=== PATIENT | female | born 1955 | race Caucasian/White ===

== ENCOUNTER 2017-12-22 10:48 | Emergency (ER) | payer OTHER ==
[~2017-12-22] VITALS: Ht 162.6 cm; Wt 73.9 kg
[2017-12-22] MEDS ORDERED: SYNTHROID175 MCG PO (10:58)
[2017-12-22] MEDS ORDERED: ZPAK PO (11:24)
[2017-12-22] MEDS ORDERED: VENTOLIN HFA 1818 GM INH (11:24)
[2017-12-22] MEDS ORDERED: PREDNISONE 20 M20 M1 PO (11:24)
[2017-12-22] MEDS ORDERED: DUONEB 2.5-0.5 M3 ML INH (12:17)
[2017-12-22 12:20] VITALS: BP 159/85
== END 2017-12-22 12:23 | disposition home or self-care (01) ==
LOC: M.ERS 10:48
DX: J44.9 Chronic obstructive pulmonary disease, unspecified (principal)

== ENCOUNTER 2019-03-07 06:14 | Inpatient (IN) | payer BC, MEDICARE ==
[~2019-03-07] VITALS: Ht 165.1 cm; Wt 76.2 kg
[~2019-03-07 06:14] MED LIST: DUONEB 2.5-0.5 M3 ML INH; PREDNISONE 20 M20 M1 PO; SYNTHROID175 MCG PO; VENTOLIN HFA 1818 GM INH; ZPAK PO
[2019-03-07 06:17] VITALS: BP 158/106
[2019-03-07] MEDS ORDERED: ZESTRIL20 MG PO (06:21)
[2019-03-07 06:39] LABS: ABSOLUTE BASOPHILS 0.1 thou/uL (0.0-0.2); ABSOLUTE EOSINOPHILS 0.4 thou/uL (0.0-0.7); ABSOLUTE NEUTROPHILS 6.2 thou/uL (1.6-8.1); BASOPHILS 0.6 %; EOSINOPHILS 4.4 %; HEMOGLOBIN 15.1 gm/dL (12.0-15.0); LYMPHOCYTES 20.4 %; MCH 28.6 pg (26.0-34.0); MCHC 32.8 g/dL (28.0-37.0); MCV 87.4 fL (80.0-100.0); MONOCYTES 10.6 %; NUCLEATED RBCS 0 /100WBC; PLATELET COUNT* 200 thou/uL (150-400); RBC 5.26 mil/uL (4.20-5.00); RDW-CV 14.6 % (10.5-14.5); WBC 9.7 thou/uL (4.0-11.0)
[2019-03-07 06:48] LABS: ANION GAP 7 mmol/L (7-16); BUN 21 mg/dL (7-18); CALCIUM 8.7 mg/dL (8.5-10.1); CHLORIDE 103 mmol/L (98-107); CO2 31 mmol/L (21-32); CREATININE 0.8 mg/dL (0.6-1.3); GLUCOSE 104 mg/dL (70-99); POTASSIUM 4.6 mmol/L (3.5-5.1); SODIUM 141 mmol/L (136-145)
[2019-03-07 06:51] LABS: APTT 26.3 Seconds (25.0-31.3); PROTIME 10.2 Seconds (9.20-11.50)
[2019-03-07 06:59] LABS: ALBUMIN 3.4 g/dL (3.4-5.0); ALKALINE PHOSPHATASE 83 U/L (46-116); LIPASE 85 U/L (73-393); MAGNESIUM 1.9 mg/dL (1.8-2.4); NT-PRO BRAIN NAT PEPTIDE 50 pg/mL (<300); SGOT 19 U/L (15-37); SGPT 32 U/L (30-65); TOTAL BILIRUBIN 0.3 mg/dL (<0.1-1.0); TOTAL PROTEIN 6.8 g/dL (6.4-8.2); TROPONIN-I LEVEL <0.06 ng/mL (<0.06)
[2019-03-07 07:11] LABS: BE 2.3 mmol/L (-2 to +3); PCO2 46.7 mmHg (35.0-45.0); PO2 65.4 mmHg (75.0-100.0); pH 7.395 (7.340-7.450)
[2019-03-07 07:14] VITALS: BP 138/89
--- NOTE | 2019-03-07 07:25 | NUR ---
REPORT REC'D FROM ER NURSING. PATIENT REC'D TO RM 109 PER CART FROM ER W/ ER NURSING PRESENT. PATIENT ALERT AND ORIENTED, PRESENT AT TIME OF ADMISSION ASSESSMENT AND REVIEW OF POC DONE. Qs ANSWERED TO PATIENT/ SATISFACTION. IV SL NOTED WNL. +COUGH, NO PROD. LS NOTED FAINT WHEEZES TO. PATIENT STATES UNABLE TO CATCH HER AIR THIS AM, STATES HAD BEEN SOB FOR APPROX 1 WEEK AND CAME TO ER THIS MORNING. DENIES OTHER NURSING NEEDS AT THIS TIME. CALL LIGHT AND RM ORIENTATION COMPLETED, PATIENT STATES VERBALLY OF UNDERSTANDING OF INSTRUCTION. ~TJRN
[2019-03-07 07:41] VITALS: BP 139/89
[2019-03-07] MEDS ORDERED: SYNTHROID125 MC1 PO (08:28)
[2019-03-07] MEDS ORDERED: BEVESPI INH (08:30)
[2019-03-07] MEDS ORDERED: UNICOMPLEX M TA1 TA1 PO (08:31)
[2019-03-07] MEDS ORDERED: CLONAZEPAM 0.50.5 M1 PO (08:32)
--- NOTE | 2019-03-07 10:45 | NUR ---
MET WITH PT TO DISCUSS HOME SITUATION/DC PLANNING. PT LIVES WITH SPOUSE. SHE USES NEBULIZER AND IS INDEPENDENT AND ACTIVE. FOLLOWS WITH [facility] ON [address], CANNOT REMEMBER NAME. DENIES ANY DC NEEDS.
[2019-03-07 17:25] VITALS: BP 147/92
--- NOTE | 2019-03-07 19:00 | NUR ---
PATIENT RESTING THIS AFTERNOON W/ EYES CLOSED, RESPS EVEN AND UNLABORED. AWAKENS EASILY TO VERBAL/TOUCH STIM. STATES THAT SHE DIDN'T SLEEP LAST NOC. +KAIAWHINA KURA [place] MAORI COUGH. IV SITE NOTED WNL. RM DARKENED. CALL LIGHT IN REACH. NO ACUTE DISTRESS NOTED. ~TJRN
[2019-03-07 20:00] VITALS: BP 142/93
[2019-03-08 03:40] LABS: HEMATOCRIT 45.4 % (37.0-47.0); HEMOGLOBIN 14.7 gm/dL (12.0-15.0); MCH 28.4 pg (26.0-34.0); MCHC 32.4 g/dL (28.0-37.0); MCV 87.7 fL (80.0-100.0); MPV 9.4 fl. (7.2-11.1); RBC 5.18 mil/uL (4.20-5.00); RDW-CV 14.9 % (10.5-14.5); WBC 10.1 thou/uL (4.0-11.0)
[2019-03-08 04:12] LABS: CALCIUM 8.9 mg/dL (8.5-10.1); CREATININE 0.8 mg/dL (0.6-1.3); MAGNESIUM 1.9 mg/dL (1.8-2.4); POTASSIUM 4.3 mmol/L (3.5-5.1)
--- NOTE | 2019-03-08 04:28 | NUR ---
PATIENT HAS REMAINED ALERT AND ORIENTED X 4 THROUGHOUT THE SHIFT AND RESTING QUIETLY ON HOURLY ROUNDS. DENIES SOA ON ROOM AIR. MEDS PER ORDER AND RT TX CONTINUE. VITAL SIGNS STABE. UP IN ROOM INDEPENDENTLY. CONTINUE TO MONITOR.
[2019-03-08 16:27] VITALS: BP 151/76
--- NOTE | 2019-03-08 18:53 | NUR ---
PATIENT PLEASANT AND COOPERATIVE THIS SHIFT, CONVERSANT. LS NOTED DIM TO. 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 PATIENT DENIES PAIN. PRESENT AT TIMES THIS SHIFT. IV CATH SITE NOTED WNL. INDEP IN RM. O2 93-95% RA. DENIES NURSING NEEDS AT THIS TIME. CALL LIGHT IN REACH. HRLY ROUNDS DONE.
[2019-03-08 19:47] VITALS: BP 143/87
--- NOTE | 2019-03-09 04:31 | NUR ---
PATIENT ALERT AND ORIENTED X 4 THIS SHIFT. DUE TO RT TX AND STEROIDS LAST BEDTIME DESPITE ADDITION OF MELATONIN. NO ACUTE RESPIRATORY DISTRESS. NOTED SOME SOA AFTER SHOWER AT SHIFT START. VITAL SIGNS STABLE. PATIENT REPORTING CONTINUED OVERALL IMPROVEMENT. CONTINUE TO MONITOR.
[2019-03-09 07:12] VITALS: BP 161/89
[2019-03-09] MEDS ORDERED: IPRAT-ALBUT 0.5-3 ML INH (09:04)
[2019-03-09 10:38] VITALS: BP 161/89
[2019-03-09] MEDS ORDERED: PROTONIX40 M1 PO (10:44)
[2019-03-09] MEDS ORDERED: CEFDINIR300 MG PO (10:44)
[2019-03-09] MEDS ORDERED: PREDNISONE 10 M10 MG PO (10:44)
--- NOTE | 2019-03-09 11:46 | NUR ---
PT.DISCHARGING TODAY. CM GAVE RN LIST OF OWNED BY [facility] TO GIVE TO PT., SHE IS LOOKING FOR A NEW PCP. NO OTHER NEEDS IDENTIFIED.
[2019-03-09 12:22] VITALS: BP 161/89
[2019-03-09] MEDS ORDERED: SINGULAIR 10 MG10 M1 PO (12:24)
--- NOTE | 2019-03-09 13:05 | EKG ---
[place] [address] ELECTROCARDIOGRAM REPORT Name: SULEMA PARRA Room: [address] IN M.R.#: [id number] Admission: 03/07/19 Attend Phys: Johny Estrada MD Discharge: 03/09/19 Date of : 51 Report #: [id number] THIS REPORT FOR: //name// [facility] ED Test Date: 2019-03-07 Test Time: 06:25:37 Pat Name: SULEMA PARRA Department: Room: [facility] Gender: F Supervisor Pairing And Inspecting: SD : 1955 Requested By: Joon Martini Order Number: [id number] MD: Julian Leone Measurements Intervals [place] Rate: 87 P: 82 [place]: 153 QRS: 61 QRSD: 102 T: 80 QT: 353 QTc: 425 Interpretive Statements Sinus rhythm Ventricular premature complex Probable left atrial enlargement No previous ECG available for comparison Electronically Signed On 03-09-2019 13:05:04 CDT by Julian Leone [email or web address] <ELECTRONICALLY SIGNED> By: Julian Leone MD, [facility] 03/09/19 1305 4 4 Julian Leone MD, FACC /EPI
== END 2019-03-09 12:22 | disposition home or self-care (01) | DRG 189 ==
LOC: M.ERS 06:14 → M.TBA-ER 06:46 → M.ORTHSURG 06:46
PROVIDERS: Family Medicine; ADMIT Internal Medicine
DX: J96.01 Acute respiratory failure with hypoxia (principal); J44.1 Chronic obstructive pulmonary disease with (acute) exacerbation; I10 Essential (primary) hypertension; E03.9 Hypothyroidism, unspecified; B96.89 Other specified bacterial agents as the cause of diseases classified elsewhere; F41.1 Generalized anxiety disorder; F32.9 Major depressive disorder, single episode, unspecified; J96.12 Chronic respiratory failure with hypercapnia; J40 Bronchitis, not specified as acute or chronic; Z87.891 Personal history of nicotine dependence; Z79.899 Other long term (current) drug therapy; Z85.850 Personal history of malignant neoplasm of thyroid

== ENCOUNTER 2019-04-11 15:42 | Emergency (ER) | payer BC, MEDICARE ==
[~2019-04-11] VITALS: Ht 165.1 cm; Wt 74.4 kg
[~2019-04-11 15:42] MED LIST changes: +BEVESPI INH; +CEFDINIR300 MG PO; +CLONAZEPAM 0.50.5 M1 PO; +IPRAT-ALBUT 0.5-3 ML INH; +PREDNISONE 10 M10 MG PO; +PROTONIX40 M1 PO; +SINGULAIR 10 MG10 M1 PO; +SYNTHROID125 MC1 PO; +UNICOMPLEX M TA1 TA1 PO; +ZESTRIL20 MG PO
[2019-04-11] MEDS ORDERED: BUSPIRONE HCL10 MG PO (15:58)
[2019-04-11 16:27] LABS: ABSOLUTE BASOPHILS 0.1 thou/uL (0.0-0.2); ABSOLUTE EOSINOPHILS 0.3 thou/uL (0.0-0.7); ABSOLUTE LYMPHOCYTES 2.3 thou/uL (0.8-5.3); ABSOLUTE MONOCYTES 0.8 thou/uL (0.0-1.2); ABSOLUTE NEUTROPHILS 3.5 thou/uL (1.6-8.1); BASOPHILS 0.9 %; EOSINOPHILS 4.3 %; HEMATOCRIT 45.4 % (37.0-47.0); HEMOGLOBIN 15.3 gm/dL (12.0-15.0); LYMPHOCYTES 32.7 %; MCH 28.9 pg (26.0-34.0); MCHC 33.6 g/dL (28.0-37.0); MCV 86.1 fL (80.0-100.0); MPV 9.3 fl. (7.2-11.1); NUCLEATED RBCS 0 /100WBC; PLATELET COUNT* 261 thou/uL (150-400); POLYS 50.1 %; RBC 5.27 mil/uL (4.20-5.00); RDW-CV 14.9 % (10.5-14.5); WBC 6.9 thou/uL (4.0-11.0)
[2019-04-11 16:31] LABS: ANION GAP 9 mmol/L (7-16); BUN 18 mg/dL (7-18); CALCIUM 8.7 mg/dL (8.5-10.1); CHLORIDE 106 mmol/L (98-107); CO2 28 mmol/L (21-32); GLUCOSE 90 mg/dL (70-99); POTASSIUM 4.2 mmol/L (3.5-5.1); SODIUM 143 mmol/L (136-145)
[2019-04-11 16:40] LABS: ALBUMIN 3.5 g/dL (3.4-5.0); ALKALINE PHOSPHATASE 87 U/L (46-116); SGOT 19 U/L (15-37); SGPT 30 U/L (30-65); TOTAL BILIRUBIN 0.3 mg/dL (<0.1-1.0); TROPONIN-I LEVEL <0.06 ng/mL (<0.06)
[2019-04-11] MEDS ORDERED: PREDNISONE 20 M20 MG PO (17:24)
[2019-04-11 17:33] VITALS: BP 152/83
--- NOTE | 2019-04-12 12:21 | EKG ---
[place] [address] ELECTROCARDIOGRAM REPORT Name: SULEMA PARRA Room: [facility]#: [id number] Admission: 04/11/19 Attend Phys: Discharge: 04/11/19 Date of : 51 Report #: [id number] THIS REPORT FOR: //name// [facility] ED Test Date: 2019-04-11 Test Time: 16:23:46 Pat Name: SULEMA PARRA Department: Room: Gender: F Camera Control Operator: MYRIAM : 1955 Requested By: Chas Sanders Order Number: [id number] MD: Julian Leone Measurements Intervals [place] Rate: 77 P: 75 NC: 165 QRS: 50 QRSD: 111 T: 65 QT: 397 QTc: 450 Interpretive Statements Sinus rhythm Minimal ST elevation, anterior leads Compared to ECG 03/07/2019 06:25:37 Ventricular premature complex(es) no longer present Electronically Signed On 04-12-2019 12:21:15 CDT by Julian Leone [email or web address] <ELECTRONICALLY SIGNED> By: Julian Leone MD, [facility] 04/12/19 1221 1623 162 Julian Leone MD, [facility] /EPI
== END 2019-04-11 17:34 | disposition home or self-care (01) ==
LOC: M.ERS 15:42
PROVIDERS: Physician Assistant
DX: J44.1 Chronic obstructive pulmonary disease with (acute) exacerbation (principal); I10 Essential (primary) hypertension; E03.9 Hypothyroidism, unspecified; Z90.89 Acquired absence of other organs

== ENCOUNTER → 2019-04-13 | Outpatient (CLI) | payer BC, MEDICARE ==
[~2019-04-13] MED LIST changes: +BUSPIRONE HCL10 MG PO; +PREDNISONE 20 M20 MG PO
== END ==
LOC: M.LAB 12:01
DX: R06.02 Shortness of breath (principal)

== ENCOUNTER 2020-02-18 12:21 | Observation (INO) | payer BC, MEDICARE ==
[~2020-02-18] VITALS: Ht 162.6 cm; Wt 74.8 kg
--- NOTE | ~2020-02-18 | CON ---
[address] [address] CONSULTATION Name: SHEBASULEMA TOLEDO ADRIANA Room: [address] Diann He#: [id number] Admission: 02/18/20 Attend Phys: Heidi Hare Discharge: Date of : 51 Report #: [id number] THIS REPORT FOR: //name// cc: Dejuan Yoo Vincent R. DO THIS REPORT FOR: //name// CC: Yousif Yoo DO DATE OF SERVICE: 02/19/2020 CARDIOLOGY CONSULTATION HISTORY OF PRESENT ILLNESS: The patient is a 64-year-old white female who I was asked to see in the hospital today after she complained of being fatigued. The patient has a long history of hypertension. I have actually seen her in the Cardiology Clinic in the past. She has had a previous stress test at [facility] that showed no significant ischemia. Recently, she complained of fatigue and having no energy. Her blood pressure has been elevated. She went to see her doctor yesterday. She was noted to have an abnormal ECG. She was sent to the hospital and admitted for further evaluation and treatment. She does have occasional chest tightness, although it is nonexertional. There is no radiation. It is not related to food. She has had no fever or cough. She does get short of breath if she exerts herself. She does have occasional edema. She notes occasional episodes where heart rate will increase and she feels dizzy, but she has had no syncope. PAST MEDICAL HISTORY: She has had previous breast lift. She has had appendectomy and cholecystectomy. She has a history of thyroid cancer and had a partial thyroidectomy, but required no radiation therapy. She has a history of hypertension. No history of diabetes or hyperlipidemia. CURRENT MEDICATIONS: Include albuterol inhaler, Synthroid, and lisinopril. ALLERGIES: She has no known drug allergies. FAMILY HISTORY: Her grandfather had a stroke. SOCIAL HISTORY: She is . She and her live in [place], [place]. She used to smoke a pack and a half of cigarettes a day for 20 years and quit 10 years ago, rarely drinks alcohol. She does exercise on a regular basis. REVIEW OF SYSTEMS: She has had no history of stroke. She does have a history of COPD and uses inhaler. No history of liver disease, kidney disease, [place] [address] CONSULTATION Name: SULEMA PARRA ADRIANA Room: [address] Ying#: [id number] Admission: 02/18/20 Attend Phys: Heidi Hare Discharge: Date of : 51 Report #: [id number] chronic skin condition. PHYSICAL EXAMINATION: GENERAL: Revealed a middle-aged female, who appeared in no distress. VITAL SIGNS: Blood pressure 160/80 and pulse 70. She is afebrile. HEENT: She was anicteric. Conjunctivae pink. Mucous membranes are moist. NECK: Veins do not appear distended. No carotid bruits. Neck supple. CHEST: Clear to auscultation. CARDIOVASCULAR: Regular rate and rhythm, no murmur. ABDOMEN: Soft. EXTREMITIES: Had no edema. Dorsalis pedis pulses 3+ bilaterally. SKIN: Cool and dry. NEUROLOGIC: Nonfocal. RADIOLOGIC DATA: Her ECG showed a sinus rhythm, nonspecific ST-segment changes. Her workup in the Emergency Room yesterday, she had a portable chest x-ray that showed hyperinflated lung meredith, normal heart size, and atelectasis. LABORATORY WORK: Sodium 137 and creatinine 1.1. Liver function studies were normal. Troponin 0.06. BNP was 50. Her white blood cell count was 9.9 and hemoglobin 16.9. IMPRESSION AND RECOMMENDATIONS: 1. Fatigue. Reason unclear. The patient is not anemic. Does not appear to be dehydrated. 2. The patient is on thyroid replacement. 3. Hypertension. The patient has been on VIJAYA inhibitor. I would increase the dose. 4. Chronic obstructive pulmonary disease. The patient uses an inhaler. 5. Chest pressure. Suspect noncardiac. Previous Cardiolite showed no ischemia. By: 0820 0837Julian Leone MD, FACC /nt
[2020-02-18 12:29] VITALS: BP 189/100
[2020-02-18 12:58] LABS: ABSOLUTE BASOPHILS 0.1 thou/uL (0.0-0.2); ABSOLUTE EOSINOPHILS 0.1 thou/uL (0.0-0.7); ABSOLUTE LYMPHOCYTES 2.3 thou/uL (0.8-5.3); ABSOLUTE MONOCYTES 0.9 thou/uL (0.0-1.2); ABSOLUTE NEUTROPHILS 6.5 thou/uL (1.6-8.1); BASOPHILS 0.7 %; EOSINOPHILS 1.1 %; HEMATOCRIT 49.4 % (37.0-47.0); HEMOGLOBIN 16.9 gm/dL (12.0-15.0); LYMPHOCYTES 23.1 %; MCH 29.8 pg (26.0-34.0); MCHC 34.2 g/dL (28.0-37.0); MCV 87.3 fL (80.0-100.0); MONOCYTES 9.5 %; MPV 9.9 fl. (7.2-11.1); NUCLEATED RBCS 0 /100WBC; PLATELET COUNT* 247 thou/uL (150-400); POLYS 65.6 %; RBC 5.66 mil/uL (4.20-5.00); RDW-CV 15.4 % (10.5-14.5); WBC 9.9 thou/uL (4.0-11.0)
[2020-02-18 13:03] LABS: CALCIUM 9.3 mg/dL (8.5-10.1); CREATININE 1.1 mg/dL (0.6-1.3); POTASSIUM 4.4 mmol/L (3.5-5.1)
[2020-02-18 13:04] LABS: INR 1.1; PROTIME 11.1 Seconds (9.20-11.50)
[2020-02-18 13:18] LABS: ALBUMIN 3.8 g/dL (3.4-5.0); TOTAL BILIRUBIN 0.5 mg/dL (<0.1-1.0); TOTAL PROTEIN 7.7 g/dL (6.4-8.2)
[2020-02-18 14:04] LABS: URINE BILIRUBIN NEGATIVE (Negative); URINE BLOOD NEGATIVE (Negative); URINE CLARITY CLEAR; URINE COLOR YELLOW; URINE GLUCOSE-RANDOM NEGATIVE (Negative); URINE KETONES NEGATIVE (Negative); URINE LEUKOCYTES-REFLEX 1+ (Negative); URINE NITRITE-REFLEX NEGATIVE (Negative); URINE PROTEIN NEGATIVE (Negative); URINE SPECIFIC GRAVITY <= 1.005 (1.005-1.030); URINE UROBILINOGEN 0.2 E.U./dl (0.2-1.0)
[2020-02-18 14:09] LABS: SQUAMOUS 0-3 Few /LPF (0-3)
[2020-02-18 14:10] LABS: URINE WBC-REFLEX 0-5 Rare /HPF (0-5)
[2020-02-18 14:11] LABS: CASTS None Seen /LPF (None Seen); CRYSTALS None Seen /LPF (None Seen); MUCUS None Seen strn/LPF (None Seen); URINE RBC None Seen /HPF (0-2)
--- NOTE | 2020-02-18 14:51 | EKG ---
[place] [address] ELECTROCARDIOGRAM REPORT Name: SHEBAPARISSULEMA Room: [facility]#: [id number] Admission: 02/18/20 Attend Phys: Discharge: Date of : 51 Date of Service: 02/18/20 1233 Report #: [id number] THIS REPORT FOR: //name// [facility] ED Test Date: 2020-02-18 Test Time: 12:33:55 Pat Name: SULEMA PARRA Department: Room: Gender: F Vet Assistant: : 1955 Requested By: Carrol Cuevas Order Number: [id number] MD: Julian Leone Measurements Intervals [place] Rate: 73 P: 72 TN: 159 QRS: 33 QRSD: 93 T: 89 QT: 390 QTc: 430 Interpretive Statements Sinus rhythm Probable left atrial enlargement Abnormal inferior Q waves Compared to ECG 04/11/2019 16:23:46 no change Electronically Signed On 02-18-2020 14:51:35 CDT by Julian Leone [email or web address] <ELECTRONICALLY SIGNED> By: Julian Leone MD, [facility] 02/18/20 1451 1233 1233 Julian Leone MD, [facility] /EPI
[2020-02-18 18:52] VITALS: BP 157/94; BP 158/78
--- NOTE | 2020-02-18 19:22 | NUR ---
PT ARRIVED ON TELE FLOOR AT 1850 ACCOMPLANIED BY ER NURSE. UP AD HELDER. VSS . SEE CHART
[2020-02-18 20:11] VITALS: BP 148/88
[2020-02-19] VITALS: BP 144/83
[2020-02-19 04:00] VITALS: BP 156/80
--- NOTE | 2020-02-19 06:39 | NUR ---
PT IS ABLE TO COMMUNICATE HER NEEDS TO STAFF EFFECTIVELY. SHE HAS DENIED THE NEED FOR PAIN MEDICATION UP TO THIS TIME. PT WAS ADMITTED TO ROOM 230 DURING RESTORATION SILVERSMITH; VSS, A+OX4, 2LO2 NC, DENIES PAIN, UP AD HELDER. SHE HAS BEEN NPO SINCE MIDNIGHT FOR A CARDIOLOGY CONSULT LATER TODAY.
[2020-02-19 08:00] VITALS: BP 116/81
[2020-02-19] MEDS ORDERED: NORVASC5 MG PO (08:37)
[2020-02-19] MEDS ORDERED: ROBAXIN 750 MG750 MG PO (08:38)
--- NOTE | 2020-02-19 08:39 | NUR ---
ASSUMED PT CARE AT 07:15 AM. REPORT RECEIVED FROM NURSE. PT IS AOX4. ON RA, O2 SATURATION IS 96%. PATIENT DENIES PAIN. TRACING SR ON SERVICE CENTER MANAGER. DENIES PAIN. BUT COMPLAINS OF MUSCLE CRAMP ON THE LEFT SIDE OF HER CHEST. CARDIO CONSULT DONE AT BEDSIDE. PLAN TO DO STRESS TEST AND ECHO TODAY. THEN PATIENT COULD BE DISCHARGED PER CERTIFIED MASSAGE THERAPIST. VSS. SEE CHART. PT IS KEPT NPO FOR STRESS TEST. BP MEDS TO BE GIVEN THIS AM PER CERTIFIED MASSAGE THERAPIST ORDER. FALL PRECAUTION IN PLACE. WILL CONTINUE TO MONITOR PT.
--- NOTE | 2020-02-19 09:36 | EKG ---
[place] [address] ELECTROCARDIOGRAM REPORT Name: SULEMA PARRA Room: [address] M.R.#: [id number] Admission: 02/18/20 Attend Phys: Yousif Pace Discharge: Date of : 51 Date of Service: 02/18/20 1450 Report #: [id number] THIS REPORT FOR: //name// [facility] ED Test Date: 2020-02-18 Test Time: 14:50:41 Pat Name: SULEMA PARRA Department: Room: [facility] Gender: F Manager Cosmetic: CCD : 1955 Requested By: Carrol Cuevas Order Number: [id number] MD: Julian Leone Measurements Intervals [place] Rate: 74 P: 58 ME: 161 QRS: 24 QRSD: 92 T: 90 QT: 391 QTc: 434 Interpretive Statements Sinus rhythm Ventricular bigeminy Probable left atrial enlargement Inferior infarct, old Minimal ST elevation, anterior leads Compared to ECG 02/18/2020 12:33:55 Ventricular premature complex(es) now present Myocardial infarct finding now present Electronically Signed On 02-19-2020 9:36:46 CDT by Julian Leone [email or web address] <ELECTRONICALLY SIGNED> By: Julian Leone MD, FAC 02/19/20 0936 1450 1450 Julian Leone MD, [facility] /EPI
[2020-02-19 11:33] VITALS: BP 116/81
[2020-02-19 12:05] VITALS: BP 137/84
--- NOTE | 2020-02-19 14:58 | EXE ---
[place] [address] STRESS ECHOCARDIOGRAM Name: SULEMA PARRA ADRIANA Room: [address] Diann He#: [id number] Admission: 02/18/20 Attend Phys: Yousif Pace Discharge: Date of : 51 Date of Service: 02/19/20 1458 Report #: [id number] THIS REPORT FOR: cc: Dejuan Yoo Vincent R. DO Blick,Julian Stark MD [facility] ~ APPROVED REPORT Study performed: 02/19/2020 10:26:26 Exam: Stress Echocardiogram Indication: Hypertension Patient Location: In-Patient Stress Nurse: Mari Villeda RN Room #: 230 Supervising Physician: Julian Leone MD Status: routine Ht: 5 ft 4 in HR: 69 bpm BP: 127/81 mmHg Rhythm: NSR Medical History Medical History: COPD, HTN Medications: Amlodipine, Lisinopril Allergies: No known drug allergies Cardiac Risk Factors: HTN, Tobacco History (Former), FHX of CAD Procedure The patient underwent an Exercise Stress Test using the Chance Protocol. Blood pressure, heart rate, and EKG were monitored. An Echocardiogram was performed by isotope technician in four stages in quad fashion. At peak stress, four selected images were obtained and placed side by side with resting images for comparison. Stress Test Details Stress Test: Exercise stress testing was performed using a Chance protocol. HR Resting HR: 69 bpm Max Heart Rate (APMHR): 154 bpm Max HR Achieved: 135 bpm Target HR (85% APMHR): 130 bpm % of APMHR: 87 Recovery HR: 99 [place] [address] STRESS ECHOCARDIOGRAM Name: SHEBACLAUDIO TOLEDOEFE WRIGHT Room: [address]#: [id number] Admission: 02/18/20 Attend Phys: Yousif Pace Discharge: Date of : 51 Date of Service: 02/19/20 1458 Report #: [id number] HR response to stress: Normal HR response to stress BP Resting BP: 127/81 mmHg Max BP: 181/92 mmHg Recovery BP: 134/74 mmHg BP response to stress: Normal blood pressure response to stress. ECG Resting ECG: Sinus Rhythm, nonspecific ST-T abnormalities Stress ECG: Sinus Rhythm, nonspecific ST-T abnormalities ST Change: Upsloping ST depression Maximum ST Deviation: 0.5 mm Arrhythmia: VPC's Recovery ECG: Sinus Rhythm, nonspecific ST-T abnormalities Recovery ST Change: Upsloping ST depression Recovery ST Deviation: 0.5 mm Recovery Arrhythmia: VPC Clinical Reason for Termination: Maximal effort, Dyspnea Stress Symptoms: Dyspnea Exercise duration: 5 min 59 sec Highest Stage Achieved: Stage 2: 2.5 mph at 12% grade. Exercise capacity: 7.05 METs Pre-Stress Echo The resting Echocardiogram showed normal left ventricular contractility with an estimated Ejection Fraction of about 55-60%. Post-Stress Echo The stress Echocardiogram showed normal left ventricular contractility with an estimated Ejection Fraction of about 65-70%. Compared to rest, there were no stress-induced wall motion abnormalities. Conclusion Clinical Response: Non-ischemic Exercise Capacity: Below Average Stress ECG Response: Indeterminant Stress Echo Images: Non-ischemic indeterminate stress echo for predicting future cardiac events secondary to inability to achieve [place] [address] STRESS ECHOCARDIOGRAM Name: CLAUDIO PARRAEFE WRIGHT Room: [address] Ying#: [id number] Admission: 02/18/20 Attend Phys: Yousif Pace Discharge: Date of : 51 Date of Service: 02/19/20 1458 Report #: [id number] Other Information Study Quality: Good <Conclusion> indeterminate stress echo for predicting future cardiac events secondary to inability to achieve target heart rate. <ELECTRONICALLY SIGNED> By: Julian Leone MD, [facility] 02/19/20 1458 1458 1458 Julian Leone MD, FACC /INF
--- NOTE | 2020-02-19 15:56 | NUR ---
STRESS TEST RESULT CAME BACK. SEE CHART. DISCHARGE INSTRUCTIONS GIVEN TO PATIENT. IV LINE REMOVED. HEART MONITOR RETRIEVED. PT LEFT UNIT AT 1545 ACCOMPANIED BY THIS NURSE ON WHEELCHAIR. HER PICKED HER UP
== END 2020-02-19 15:45 | disposition home or self-care (01) ==
LOC: M.ERS 12:21 → M.2W 15:28 → M.TBA-ER 15:28 → M.2W 18:44
PROVIDERS: Personal Emergency Response Attendant; ADMIT Internal Medicine; ATTEND Internal Medicine
DX: R07.89 Other chest pain (principal); I16.0 Hypertensive urgency; I16.1 Hypertensive emergency; R53.83 Other fatigue; R19.7 Diarrhea, unspecified; J44.9 Chronic obstructive pulmonary disease, unspecified; I10 Essential (primary) hypertension; E03.9 Hypothyroidism, unspecified; F41.9 Anxiety disorder, unspecified; F32.9 Major depressive disorder, single episode, unspecified; Z87.891 Personal history of nicotine dependence; M62.838 Other muscle spasm

== ENCOUNTER 2020-03-11 18:07 | Emergency (ER) | payer BC, MEDICARE ==
[~2020-03-11] VITALS: Ht 162.6 cm; Wt 77.1 kg
[~2020-03-11 18:07] MED LIST changes: +NORVASC5 MG PO; +ROBAXIN 750 MG750 MG PO
[2020-03-11] MEDS ORDERED: ONDANSETRON HCL4 M2 PO (18:51)
[2020-03-11] MEDS ORDERED: ZPAK PO (18:51)
[2020-03-11] MEDS ORDERED: VENTOLIN HFA 1818 GM INH (18:51)
[2020-03-11 19:22] VITALS: BP 135/70
== END 2020-03-11 19:23 | disposition home or self-care (01) ==
LOC: M.ERS 18:07
DX: U07.1 COVID-19 (principal); I10 Essential (primary) hypertension; E03.9 Hypothyroidism, unspecified; J45.909 Unspecified asthma, uncomplicated; J44.9 Chronic obstructive pulmonary disease, unspecified; Z90.49 Acquired absence of other specified parts of digestive tract; Z85.850 Personal history of malignant neoplasm of thyroid

== ENCOUNTER 2020-03-13 22:37 | Inpatient (IN) | payer BC, MEDICARE ==
[~2020-03-13] VITALS: Ht 162.6 cm; Wt 82.6 kg
[~2020-03-13 22:37] MED LIST changes: +ONDANSETRON HCL4 M2 PO
[2020-03-13 22:45] VITALS: BP 147/81
[2020-03-13 23:26] LABS: ABSOLUTE MONOCYTES 0.5 thou/uL (0.0-1.2); ABSOLUTE NEUTROPHILS 3.6 thou/uL (1.6-8.1); BASOPHILS 0.3 %; EOSINOPHILS 0.2 %; HEMATOCRIT 41.6 % (37.0-47.0); HEMOGLOBIN 14.1 gm/dL (12.0-15.0); LYMPHOCYTES 19.3 %; MCH 29.4 pg (26.0-34.0); MCHC 33.9 g/dL (28.0-37.0); MCV 86.8 fL (80.0-100.0); MONOCYTES 9.1 %; MPV 9.9 fl. (7.2-11.1); NUCLEATED RBCS 0 /100WBC; PLATELET COUNT* 128 thou/uL (150-400); POLYS 71.1 %; RBC 4.79 mil/uL (4.20-5.00); RDW-CV 15.1 % (10.5-14.5)
[2020-03-13 23:27] LABS: URINE BILIRUBIN NEGATIVE (Negative); URINE BLOOD NEGATIVE (Negative); URINE CLARITY CLEAR; URINE COLOR YELLOW; URINE GLUCOSE-RANDOM NEGATIVE (Negative); URINE KETONES NEGATIVE (Negative); URINE LEUKOCYTES-REFLEX NEGATIVE (Negative); URINE NITRITE-REFLEX NEGATIVE (Negative); URINE PROTEIN NEGATIVE (Negative); URINE SPECIFIC GRAVITY <= 1.005 (1.005-1.030); URINE UROBILINOGEN 0.2 E.U./dl (0.2-1.0)
[2020-03-13 23:36] LABS: PROTIME 10.2 Seconds (9.20-11.50)
[2020-03-13 23:45] LABS: CALCIUM 7.5 mg/dL (8.5-10.1); CREATININE 1.2 mg/dL (0.6-1.3); POTASSIUM 3.3 mmol/L (3.5-5.1)
[2020-03-14 00:02] LABS: ALBUMIN 3.1 g/dL (3.4-5.0); MAGNESIUM 1.7 mg/dL (1.8-2.4); TOTAL BILIRUBIN 0.3 mg/dL (<0.1-1.0); TOTAL PROTEIN 6.8 g/dL (6.4-8.2)
[2020-03-14 03:52] VITALS: BP 133/71
[2020-03-14 03:58] VITALS: BP 120/55
[2020-03-14 08:00] VITALS: BP 122/71
--- NOTE | 2020-03-14 09:34 | EKG ---
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 Helper: MR : 1955 Requested By: Jocelyn Jimenez Order Number: [id number] MD: Julian Leone Measurements Intervals [place] Rate: 90 P: 16 [place]: 160 QRS: 36 QRSD: 76 T: 60 QT: 356 QTc: 436 Interpretive Statements Sinus rhythm Abnormal inferior Q waves Compared to ECG 02/18/2020 14:50:41 Ventricular premature complex(es) no longer present Electronically Signed On 03-14-2020 9:34:43 CDT by Julian Leone [email or web address] <ELECTRONICALLY SIGNED> By: Julian Leone MD, FAC 03/14/20 0934 2302 2302 Julian Leone MD, [facility] /EPI
[2020-03-14 11:14] LABS: HEMATOCRIT 41.4 % (37.0-47.0); HEMOGLOBIN 13.8 gm/dL (12.0-15.0); MCH 28.8 pg (26.0-34.0); MCHC 33.3 g/dL (28.0-37.0); MCV 86.7 fL (80.0-100.0); MPV 9.9 fl. (7.2-11.1); NUCLEATED RBCS 0 /100WBC; PLATELET COUNT* 134 thou/uL (150-400); RBC 4.78 mil/uL (4.20-5.00); WBC 4.1 thou/uL (4.0-11.0)
[2020-03-14 11:23] LABS: ALBUMIN 2.8 g/dL (3.4-5.0); CALCIUM 7.5 mg/dL (8.5-10.1); CREATININE 1.1 mg/dL (0.6-1.3); MAGNESIUM 1.9 mg/dL (1.8-2.4); TOTAL BILIRUBIN 0.2 mg/dL (<0.1-1.0); TOTAL PROTEIN 6.6 g/dL (6.4-8.2)
[2020-03-14 11:28] LABS: POTASSIUM 4.3 mmol/L (3.5-5.1)
[2020-03-14 12:00] VITALS: BP 111/60
[2020-03-14 12:26] LABS: ABSOLUTE LYMPHOCYTES 0.3 thou/uL (0.8-5.3); ABSOLUTE MONOCYTES 0.1 thou/uL (0.0-1.2); ABSOLUTE NEUTROPHILS 3.7 thou/uL (1.6-8.1); PLATELET ESTIMATE DECREASED
[2020-03-14 12:27] LABS: ANISOCYTOSIS 1+; POIKILOCYTOSIS 1+
[2020-03-14 16:00] VITALS: BP 133/80
[2020-03-14 20:00] VITALS: BP 138/86
[2020-03-15] VITALS: BP 135/81
[2020-03-15 04:00] VITALS: BP 132/79
[2020-03-15 08:00] VITALS: BP 145/75
[2020-03-15 12:06] VITALS: BP 120/72
[2020-03-15 16:00] VITALS: BP 146/86
[2020-03-15 21:44] VITALS: BP 151/92
[2020-03-16] VITALS: BP 137/85
[2020-03-16 05:00] VITALS: BP 130/82
[2020-03-16 08:00] VITALS: BP 148/85
[2020-03-16 12:00] VITALS: BP 132/85
[2020-03-16 15:28] VITALS: BP 167/87
[2020-03-16 20:30] VITALS: BP 146/86
[2020-03-17 00:29] VITALS: BP 139/83
[2020-03-17 04:44] VITALS: BP 130/87
[2020-03-17 08:00] VITALS: BP 154/92
[2020-03-17 12:30] VITALS: BP 150/80
[2020-03-17] MEDS ORDERED: CEFPODOXIME PR200 M1 PO (16:12)
[2020-03-17] MEDS ORDERED: PREDNISONE 20 M20 M1 PO (16:13)
[2020-03-17 16:30] VITALS: BP 150/80
== END 2020-03-17 17:05 | disposition home or self-care (01) | DRG 177 ==
LOC: M.ERS 22:37 → M.2W 03-14 01:15 → M.TBA-ER 03-14 01:15 → M.2W 03-14 03:46
PROVIDERS: Emergency Medicine; Nurse Practitioner; ADMIT Internal Medicine; ATTEND Internal Medicine
DX: U07.1 COVID-19 (principal); J96.01 Acute respiratory failure with hypoxia; J44.9 Chronic obstructive pulmonary disease, unspecified; I10 Essential (primary) hypertension; F32.9 Major depressive disorder, single episode, unspecified; Z66 Do not resuscitate; Z85.850 Personal history of malignant neoplasm of thyroid; Z83.6 Family history of other diseases of the respiratory system

== ENCOUNTER 2020-03-19 19:23 | Inpatient (IN) | payer BC, MEDICARE ==
[~2020-03-19] VITALS: Ht 165.1 cm; Wt 81.9 kg
[~2020-03-19 19:23] MED LIST changes: +CEFPODOXIME PR200 M1 PO
[2020-03-19 19:39] VITALS: BP 182/102
[2020-03-19 20:18] LABS: HEMATOCRIT 45.8 % (37.0-47.0); HEMOGLOBIN 15.5 gm/dL (12.0-15.0); MCH 29.1 pg (26.0-34.0); MCHC 33.8 g/dL (28.0-37.0); MPV 9.6 fl. (7.2-11.1); NUCLEATED RBCS 0 /100WBC; PLATELET COUNT* 261 thou/uL (150-400); RBC 5.33 mil/uL (4.20-5.00); RDW-CV 15.3 % (10.5-14.5); WBC 10.4 thou/uL (4.0-11.0)
[2020-03-19 20:21] LABS: APTT 25.8 Seconds (25.0-31.3); CALCIUM 8.3 mg/dL (8.5-10.1); CREATININE 1.1 mg/dL (0.6-1.3); PROTIME 10.7 Seconds (9.20-11.50)
[2020-03-19 20:27] LABS: URINE BILIRUBIN NEGATIVE (Negative); URINE BLOOD TRACE (Negative); URINE CLARITY CLEAR; URINE COLOR YELLOW; URINE GLUCOSE-RANDOM NEGATIVE (Negative); URINE KETONES NEGATIVE (Negative); URINE LEUKOCYTES-REFLEX NEGATIVE (Negative); URINE NITRITE-REFLEX NEGATIVE (Negative); URINE PROTEIN TRACE (Negative); URINE UROBILINOGEN 0.2 E.U./dl (0.2-1.0)
[2020-03-19 20:32] LABS: ALBUMIN 2.7 g/dL (3.4-5.0); MAGNESIUM 1.9 mg/dL (1.8-2.4); TOTAL BILIRUBIN 0.7 mg/dL (<0.1-1.0); TOTAL PROTEIN 7.4 g/dL (6.4-8.2)
[2020-03-19 20:48] LABS: ABSOLUTE LYMPHOCYTES 1.2 thou/uL (0.8-5.3); ABSOLUTE MONOCYTES 0.7 thou/uL (0.0-1.2); ABSOLUTE NEUTROPHILS 8.4 thou/uL (1.6-8.1); ANISOCYTOSIS 1+; PLATELET ESTIMATE ADEQUATE
[2020-03-19 22:54] VITALS: BP 131/70
[2020-03-19 23:08] LABS: BE 1.3 mmol/L (-2 to +3); PCO2 36.8 mmHg (35.0-45.0); PO2 116.6 mmHg (75.0-100.0); pH 7.449 (7.340-7.450)
[2020-03-20 00:30] VITALS: BP 136/80
[2020-03-20 04:29] VITALS: BP 133/77
--- NOTE | 2020-03-20 07:48 | NUR ---
ASSUMED CARE OF PT AFTER REPORT AT 19
--- NOTE | 2020-03-20 07:54 | NUR ---
RECEIVED REPORT FROM ERIC ALARCON. PT TRANSFERRED TO RM 200. PT A&OX4. VSS. CARIAC MONITOR IN PLACE. ADMISSION HISTORY & PHYSICAL ASSESSMENT COMPLETED AND CHARTED. ADMISSION HISTORY & PHYSICAL ASSESSMENT COMPLETED AND CHARTED. PT ON BIPAP. PT TRACING SR/ST ON TELE. PT UPADLIB TO BSC. PT DENIES PAIN. PT WITH FEBRILE EPISODE-DR STEVENSON MADE AWARE WITH NEW ORDER. PT ABLE TO SLEEP WELL ON BED. PLACED ON ENHANCED PRECAUTION FOR POSITIVE COVID.CALL LIGHT WITHIN REACH.
[2020-03-20 08:30] VITALS: BP 130/82
[2020-03-20 09:04] LABS: CALCIUM 7.7 mg/dL (8.5-10.1); CREATININE 1.2 mg/dL (0.6-1.3); MAGNESIUM 1.9 mg/dL (1.8-2.4); POTASSIUM 3.7 mmol/L (3.5-5.1)
[2020-03-20 15:00] VITALS: BP 110/72
--- NOTE | 2020-03-20 19:37 | NUR ---
pt has remained alert, oriented and cooperative with staff. has tolerated being off bipap majority of afternoon. no c/o respiratory distress
[2020-03-20 20:00] VITALS: BP 121/74
[2020-03-21] VITALS (7 sets, daily range): BP systolic 114–139; BP diastolic 73–89
[2020-03-21 02:05] LABS: HEPATITIS B SURFACE AG Negative (Negative); HIV-1/HIV-2 ANTIBODY Non Reactive (Non Reactive)
--- NOTE | 2020-03-21 05:49 | NUR ---
ASSUMED CARE OF PT AFTER REPORT AT 1930. PT A&OX4. VSS. PHYSICAL ASSESSMENT COMPLETED AND CHARTED. PT ON O2 AT 7L NC-OFF BIPAP. PT TRACING SR/PVC ON TELE. PT UPADLIB. PT DENIES ANY PAIN. PT ABLE TO SLEEP WELL ON BED. FALL PPRECAUTIONS IN PLACE.
--- NOTE | 2020-03-21 09:54 | EKG ---
[place] [address] ELECTROCARDIOGRAM REPORT Name: SULEMA PARRA Room: [address] ADM IN M.R.#: [id number] Admission: 03/19/20 Attend Phys: Jim Hendrix Discharge: Date of : 51 Date of Service: 03/20/20 0822 Report #: [id number] THIS REPORT FOR: //name// [facility] Test Date: 2020-03-20 Test Time: 08:22:48 Pat Name: SULEMA PARRA Department: Room: [address] Gender: F Saas Architect: christina : 1955 Requested By: Johny Estrada Order Number: [id number] Jessika MD: Dawson Olivera Measurements Intervals [place] Rate: 86 P: 70 [place]: 126 QRS: 54 QRSD: 96 T: 77 QT: 365 QTc: 437 Interpretive Statements Sinus rhythm Compared to ECG 03/19/2020 19:36:29 Sinus tachycardia no longer present Atrial abnormality no longer present ST (T wave) deviation no longer present Electronically Signed On 03-21-2020 9:54:46 CDT by Dawson Olivera [email or web address] <ELECTRONICALLY SIGNED> By: Dawson Olivera MD, [facility] 03/21/20 0954 1 1 Dawson Olivera MD, [facility] /EPI
--- NOTE | 2020-03-21 09:54 | EKG ---
[place] [address] ELECTROCARDIOGRAM REPORT Name: SULEMA PARRA Room: [address] ADM IN M.R.#: [id number] Admission: 03/19/20 Attend Phys: Jim Hendrix Discharge: Date of : 51 Date of Service: 03/19/201935 Report #: [id number] THIS REPORT FOR: //name// [facility] ED Test Date: 2020-03-19 Test Time: 19:36:29 Pat Name: SULEMA PARRA Department: Room: [address] Gender: F Collator Operator: KIM : 1955 Requested By: Derian Catalan Order Number: [id number] Jessika MD: Dawson Olivera Measurements Intervals [place] Rate: 107 P: 66 [place]: 116 QRS: 36 QRSD: 98 T: 46 QT: 324 QTc: 433 Interpretive Statements Sinus tachycardia Left atrial enlargement Minimal ST depression, diffuse leads Baseline wander in lead(s) II,III,aVF,V4 Compared to ECG 03/13/2020 23:02:19 Atrial abnormality now present ST (T wave) deviation now present Sinus rate has increased Small inferior Q waves persist Electronically Signed On 03-21-2020 9:54:24 CDT by Dawson Olivera [email or web address] <ELECTRONICALLY SIGNED> By: Dawson Olivera MD, [facility] 03/21/20 0954 35 35 Dawson Olivera MD, [facility] /EPI
--- NOTE | 2020-03-21 11:28 | NUR ---
CM spoke with Pt via phone, Pt on covid precautions. Pt recently dc to home on 03/17 with home o2 through [employer], Pt now requiring 7L, pulm following. Pt resides at home with and normally ind and active. No hx of HH or SNF. CM following for dc needs.
[2020-03-21 13:51] LABS: ABSOLUTE LYMPHOCYTES 0.5 thou/uL (0.8-5.3); ABSOLUTE MONOCYTES 0.4 thou/uL (0.0-1.2); BASOPHILS 0.1 %; HEMATOCRIT 41.7 % (37.0-47.0); LYMPHOCYTES 7.2 %; MCH 28.9 pg (26.0-34.0); MCHC 33.6 g/dL (28.0-37.0); MONOCYTES 5.6 %; MPV 9.3 fl. (7.2-11.1); NUCLEATED RBCS 0 /100WBC; PLATELET COUNT* 240 thou/uL (150-400); POLYS 87.1 %; RBC 4.85 mil/uL (4.20-5.00); WBC 6.8 thou/uL (4.0-11.0)
[2020-03-21 16:58] LABS: CALCIUM 7.8 mg/dL (8.5-10.1); POTASSIUM 3.7 mmol/L (3.5-5.1)
--- NOTE | 2020-03-21 17:33 | NUR ---
Pt has remained alert, oriented x 4 and cooperative with staff. Pt has had no c/o respiratory distress. Breath sounds coarse this shift. Pt has remained on supplemental 02 via high flow cannula (per RT) at flow rate 7-8l/minute. No use of bipap this shift. Advanced to solid foods. Pt has tolerated advancement in diet
[2020-03-22] VITALS: BP 136/84
[2020-03-22 04:00] VITALS: BP 131/83
--- NOTE | 2020-03-22 05:10 | NUR ---
PT IS ABLE TO COMMUNICATE HER NEEDS TO STAFF EFFECTIVELY. SHE HAS DENIED THE NEED FOR PAIN MEDICATION UP TO THIS TIME. ENHANCED ISOLATION FOR COVID-19 POSITIVE TEST RESULT MAINTAINED. PT HAS BEEN WEARING HER BIPAP WHILE SLEEPING TONIGHT UP TO THIS TIME.
[2020-03-22 05:38] LABS: HEMATOCRIT 39.8 % (37.0-47.0); HEMOGLOBIN 13.6 gm/dL (12.0-15.0); MCH 29.1 pg (26.0-34.0); MCHC 34.1 g/dL (28.0-37.0); MCV 85.2 fL (80.0-100.0); MPV 9.5 fl. (7.2-11.1); RBC 4.67 mil/uL (4.20-5.00); RDW-CV 14.8 % (10.5-14.5); WBC 10.2 thou/uL (4.0-11.0)
[2020-03-22 06:42] LABS: ALBUMIN 1.9 g/dL (3.4-5.0); CALCIUM 7.6 mg/dL (8.5-10.1); CREATININE 1.1 mg/dL (0.6-1.3); MAGNESIUM 1.9 mg/dL (1.8-2.4); POTASSIUM 3.9 mmol/L (3.5-5.1); TOTAL BILIRUBIN 0.4 mg/dL (<0.1-1.0); TOTAL PROTEIN 5.9 g/dL (6.4-8.2)
[2020-03-22 08:00] VITALS: BP 140/87
--- NOTE | 2020-03-22 11:32 | NUR ---
Covid positive. On 8L o2, continue to wean down. On bipap prn
[2020-03-22 12:23] VITALS: BP 163/82
--- NOTE | 2020-03-22 18:43 | NUR ---
VSS. PT NOW MED SURG. NO C/O PAIN. PT TITRATED FROM 8L NC TO 7L NC. PT 88% ON 7L NC HI RENETTA. PT TITRATED BACK TO 8L HIFLO NC.
[2020-03-22 20:07] VITALS: BP 137/83
[2020-03-23 04:00] VITALS: BP 141/83
[2020-03-23 04:57] LABS: HEMATOCRIT 42.5 % (37.0-47.0); HEMOGLOBIN 14.2 gm/dL (12.0-15.0); MCH 28.6 pg (26.0-34.0); MCHC 33.5 g/dL (28.0-37.0); MCV 85.5 fL (80.0-100.0); MPV 9.6 fl. (7.2-11.1); NUCLEATED RBCS 0 /100WBC; PLATELET COUNT* 291 thou/uL (150-400); RBC 4.98 mil/uL (4.20-5.00); RDW-CV 14.8 % (10.5-14.5)
--- NOTE | 2020-03-23 05:07 | NUR ---
PT IS ABLE TO COMMUNICATE HER NEEDS TO STAFF EFFECTIVELY. SHE HAS DENIED THE NEED FOR PAIN MEDICATION UP TO THIS TIME. PT ON HIGH FLOW NC AT THIS TIME; RT FOLLOWING. SHE IS MED/SURG, NON-TELEMETRY, STATUS AT THIS TIME.
[2020-03-23 05:49] LABS: ABSOLUTE LYMPHOCYTES 1.2 thou/uL (0.8-5.3); ABSOLUTE MONOCYTES 0.1 thou/uL (0.0-1.2); ABSOLUTE NEUTROPHILS 8.7 thou/uL (1.6-8.1); PLATELET ESTIMATE ADEQUATE
[2020-03-23 05:50] LABS: ANISOCYTOSIS 1+; POIKILOCYTOSIS 1+
[2020-03-23 06:03] LABS: ALBUMIN 2.3 g/dL (3.4-5.0); CALCIUM 8.1 mg/dL (8.5-10.1); MAGNESIUM 2.1 mg/dL (1.8-2.4); POTASSIUM 4.2 mmol/L (3.5-5.1); TOTAL BILIRUBIN 0.4 mg/dL (<0.1-1.0); TOTAL PROTEIN 5.6 g/dL (6.4-8.2)
[2020-03-23 07:30] VITALS: BP 145/83
--- NOTE | 2020-03-23 13:38 | NUR ---
Pt on 9L oxygen, continue to work on titrating. Pt has 2 more doses of Remdesivir.
[2020-03-23 16:29] VITALS: BP 130/61
[2020-03-23 21:01] VITALS: BP 158/90
[2020-03-24 04:00] VITALS: BP 141/85
--- NOTE | 2020-03-24 05:34 | NUR ---
PT IS ABLE TO COMMUNICATE HER NEEDS TO STAFF EFFECTIVELY. SHE HAS DENIED THE NEED FOR PAIN MEDICATION UP TO THIS TIME. RT IS FOLLOWING. PULMONOLOGY IS FOLLOWING. MED/SURG, NON-TELEMETRY, STATUS NOW. POSSIBLE DISCHARGE IN A COUPLE OF DAYS.
--- NOTE | 2020-03-24 05:47 | NUR ---
PT ADMITTED TO ROOM 207 DURING BEVERAGE DISTILLER; VSS, A+OX4, ROOM AIR, NPO AT MIDNIGHT FOR A CORDIOLOGY CONSULT TODAY, UP SBA, BED ALARM (NEAR SYNCOPY). SHE IS ABLE TO COMMUNICATE HER NEEDS TO STAFF EFFECTIVELY. SHE HAS DENIED THE NEED FOR PAIN MEDICATION UP TO THIS TIME,
--- NOTE | 2020-03-24 07:10 | NUR ---
CHANGE OF SHIFT, BEDSIDE REPORT GIVEN PATIENT SEEN AT BEDSIDE, IN BED ASLEEP ASSUMED PATIENT CARE
[2020-03-24 08:00] VITALS: BP 129/68
[2020-03-24] MEDS ORDERED: DEXAMETHASONE1 MG PO (11:21)
--- NOTE | 2020-03-24 13:11 | NUR ---
Plan dc home today, pending new ex ox. Pt down to 4L o2, waiting RT to complete.
[2020-03-24 14:16] VITALS: BP 141/85
--- NOTE | 2020-03-24 15:37 | NUR ---
patient discharged to home all discharge instructions given, acknowledged, signed copies given iv removed personal belongings returned patient assisted out via wc in good condition to waiting car patient with mask on at all times
== END 2020-03-24 15:30 | disposition home or self-care (01) | DRG 871 ==
LOC: M.ERS 19:23 → M.TBA-ER 21:59 → M.2W 21:59
PROVIDERS: Internal Medicine; Internal Medicine Critical Care Medicine; Personal Emergency Response Attendant; ADMIT Internal Medicine; ATTEND Internal Medicine
DX: A41.89 Other specified sepsis (principal); J96.01 Acute respiratory failure with hypoxia; U07.1 COVID-19; J12.89 Other viral pneumonia; J44.0 Chronic obstructive pulmonary disease with (acute) lower respiratory infection; I10 Essential (primary) hypertension; J45.909 Unspecified asthma, uncomplicated; F41.9 Anxiety disorder, unspecified; F41.1 Generalized anxiety disorder; F32.9 Major depressive disorder, single episode, unspecified; E89.0 Postprocedural hypothyroidism; Z87.891 Personal history of nicotine dependence; Z86.19 Personal history of other infectious and parasitic diseases; Z79.899 Other long term (current) drug therapy

== ENCOUNTER 2021-02-11 20:39 | Inpatient (IN) | payer OTHER ==
[~2021-02-11] VITALS: Ht 165.1 cm; Wt 85.0 kg
[~2021-02-11 20:39] MED LIST changes: +DEXAMETHASONE1 MG PO
[2021-02-11 20:58] VITALS: BP 158/96
[2021-02-11] MEDS ORDERED: SERTRALINE HCL100 MG PO (21:04)
[2021-02-11] MEDS ORDERED: BEVESPI AEROS10.7 GM INH (21:05)
[2021-02-11 22:13] LABS: HEMATOCRIT 46.6 % (37.0-47.0); HEMOGLOBIN 15.7 gm/dL (12.0-15.0); MCH 29.5 pg (26.0-34.0); MCHC 33.6 g/dL (28.0-37.0); MCV 87.8 fL (80.0-100.0); MPV 9.1 fl. (7.2-11.1); NUCLEATED RBCS 0 /100WBC; PLATELET COUNT* 273 thou/uL (150-400); RBC 5.31 mil/uL (4.20-5.00); RDW-CV 14.8 % (10.5-14.5); WBC 12.7 thou/uL (4.0-11.0)
[2021-02-11 22:21] LABS: CALCIUM 8.6 mg/dL (8.5-10.1); CREATININE 1.2 mg/dL (0.6-1.3); POTASSIUM 4.2 mmol/L (3.5-5.1)
[2021-02-11 22:50] LABS: ABSOLUTE BASOPHILS 0.1 thou/uL (0.0-0.2); ABSOLUTE EOSINOPHILS 0.1 thou/uL (0.0-0.7); ABSOLUTE LYMPHOCYTES 2.3 thou/uL (0.8-5.3); ABSOLUTE MONOCYTES 1.4 thou/uL (0.0-1.2); ABSOLUTE NEUTROPHILS 8.8 thou/uL (1.6-8.1)
[2021-02-11 22:51] LABS: ANISOCYTOSIS 1+; PLATELET ESTIMATE ADEQUATE
[2021-02-12] VITALS (7 sets, daily range): BP systolic 123–137; BP diastolic 74–89
[2021-02-13] VITALS: BP 125/66
[2021-02-13 04:24] LABS: HEMATOCRIT 44.3 % (37.0-47.0); HEMOGLOBIN 14.5 gm/dL (12.0-15.0); MCHC 32.7 g/dL (28.0-37.0); MCV 88.6 fL (80.0-100.0); MPV 9.5 fl. (7.2-11.1); RBC 4.99 mil/uL (4.20-5.00); WBC 17.7 thou/uL (4.0-11.0)
[2021-02-13 04:33] VITALS: BP 129/74
[2021-02-13 04:55] LABS: ALBUMIN 3.5 g/dL (3.4-5.0); CALCIUM 8.6 mg/dL (8.5-10.1); MAGNESIUM 2.1 mg/dL (1.8-2.4); POTASSIUM 4.4 mmol/L (3.5-5.1); TOTAL BILIRUBIN 0.3 mg/dL (<0.1-1.0); TOTAL PROTEIN 6.7 g/dL (6.4-8.2)
[2021-02-13 07:40] VITALS: BP 130/91
[2021-02-13 12:00] VITALS: BP 133/69
--- NOTE | 2021-02-13 13:09 | 2DMMODE ---
[place] [address] 2 D/M-MODE ECHOCARDIOGRAM Name: SHEBAPARISSULEMAEFE WRIGHT Room: [address] ADM IN .R.#: [id number] Admission: 02/13/21 Attend Phys: Yousif Pace Discharge: Date of : 51 Date of Service: 02/13/21 1308 Report #: [id number] THIS REPORT FOR: cc: Dejuan Yoo,Dejuan De Luna,Dawson Guzman MD [facility] ~ APPROVED REPORT Study performed: 02/13/2021 10:01:08 EXAM: Comprehensive 2D, Doppler, and color-flow Echocardiogram Patient Location: In-Patient Room #: Formerly named [facility] Status: routine BSA: 1.89 HR: 90 bpm BP: 130/91 mmHg Rhythm: NSR Other Information Study Quality: Good Indications Congestive Heart Failure COPD Dyspnea 2D Dimensions IVSd: 10.67 (7-11mm) LVOT Diam: 19.62 (18-24mm) LVDd: 39.68 mm PWd: 9.92 (7-11mm) Ascending Ao: 28.93 (22-36mm) LVDs: 16.72 (25-40mm) Aortic Root: 29.96 mm Volumes Left Atrial Volume (Systole) LA ESV Index: 19.90 mL/m2 Aortic Valve AoV Peak Zafar.: 1.83 m/s AO Peak Gr.: 13.44 mmHg LVOT Max P.76 mmHg AO Mean Gr.: 8.17 mmHg LVOT Mean P.17 mmHg LVOT Max V: 1.85 m/s AO V2 VTI: 31.80 cm LVOT Mean V: 1.23 m/[place] [address] 2 D/M-MODE ECHOCARDIOGRAM Name: SULEMA PARRA ADRIANA Room: [address] IN M.R.#: [id number] Admission: 02/13/21 Attend Phys: Yousif Pace Discharge: Date of : 51 Date of Service: 02/13/21 1308 Report #: [id number] CAITLIN (VTI): 2.77 cm2 LVOT V1 VTI: 29.11 cm Mitral Valve E/A Ratio: 0.86 MV Decel. Time: 192.69 ms MV E Max Zafar.: 0.70 m/s MV PHT: 55.88 ms MVA (PHT): 3.94 cm2 TDI E/Lateral E': 7.00 E/Medial E': 7.78 Medial E' Zafar.: 0.09 m/s Lateral E' Zafar.: 0.10 m/s Pulmonary Valve PV Peak Zafar.: 1.39 m/s PV Peak Gr.: 7.70 mmHg Left Ventricle The left ventricle is normal size. There is normal LV segmental wall motion. There is normal left ventricular wall thickness. Left ventricular systolic function is normal. The left ventricular ejection fraction is within the normal range. LVEF is 65-70%. Grade I - abnormal relaxation pattern. Right Ventricle The right ventricle is normal size. The right ventricular systolic function is normal. Atria The left atrium size is normal. The right atrium size is normal. Aortic Valve The aortic valve is normal in structure. No aortic regurgitation is present. There is no aortic valvular stenosis. Mitral Valve The mitral valve is normal in structure. There is no mitral valve regurgitation noted. No evidence of mitral valve stenosis. Tricuspid Valve The tricuspid valve is normal in structure. Trace tricuspid regurgitation. Unable to assess PA pressure. Pulmonic Valve The pulmonary valve is normal in structure. [place] [address] 2 D/M-MODE ECHOCARDIOGRAM Name: CLAUDIO PARRAEFE WRIGHT Room: [address] IN [facility]#: [id number] Admission: 02/13/21 Attend Phys: Yousif Pace Discharge: Date of : 51 Date of Service: 02/13/21 1308 Report #: [id number] valvular regurgitation. Great Vessels The aortic root is normal in size. IVC is normal in size and collapses >50% with inspiration. Pericardium There is no pericardial effusion. <Conclusion> The left ventricle is normal size. There is normal left ventricular wall thickness. Left ventricular systolic function is normal. The left ventricular ejection fraction is within the normal range. LVEF is 65-70%. Grade I - abnormal relaxation pattern. The right ventricle is normal size. The left atrium size is normal. The aortic valve is normal in structure. The mitral valve is normal in structure. The tricuspid valve is normal in structure. IVC is normal in size and collapses >50% with inspiration. There is no pericardial effusion. There is normal LV segmental wall motion. <ELECTRONICALLY SIGNED> By: Dawson Olivera MD, FACC 02/13/21 1308 1308 1308 Dawson Olivera MD, FACC /INF
--- NOTE | 2021-02-13 14:00 | EKG ---
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 : 1955 Requested By: Jocelyn Jimenez Order Number: [id number] Jessika MD: Dawson Olivera Measurements Intervals [place] Rate: 83 P: 59 VT: 158 QRS: 26 QRSD: 90 T: 72 QT: 371 QTc: 436 Interpretive Statements Sinus rhythm Consider left atrial enlargement RSR' in V1 or V2, probably normal variant Nondiagnostic inferior Q waves Baseline wander in lead(s) II,aVF Compared to ECG 03/20/2020 08:22:48 RSR' in V1 or V2 now present Small inferior Q waves persist Electronically Signed On 02-13-2021 14:00:18 CDT by Dawson Olivera [email or web address] <ELECTRONICALLY SIGNED> By: Dawson Olivera MD, [facility] 02/13/21 1400 15 15 Dawson Olivera MD, [facility] /EPI
[2021-02-13 16:00] VITALS: BP 136/74
[2021-02-14 01:12] VITALS: BP 143/81
[2021-02-14 04:23] VITALS: BP 143/79
[2021-02-14 07:25] VITALS: BP 113/63
[2021-02-14 10:25] VITALS: BP 113/63
[2021-02-14 10:34] LABS: ABSOLUTE BASOPHILS 0.1 thou/uL (0.0-0.2); ABSOLUTE LYMPHOCYTES 0.7 thou/uL (0.8-5.3); ABSOLUTE MONOCYTES 0.7 thou/uL (0.0-1.2); ABSOLUTE NEUTROPHILS 23.3 thou/uL (1.6-8.1); BASOPHILS 0.3 %; HEMOGLOBIN 15.3 gm/dL (12.0-15.0); LYMPHOCYTES 2.9 %; MCH 30.1 pg (26.0-34.0); MCHC 33.9 g/dL (28.0-37.0); MCV 88.6 fL (80.0-100.0); MONOCYTES 2.7 %; MPV 9.4 fl. (7.2-11.1); NUCLEATED RBCS 0 /100WBC; PLATELET COUNT* 303 thou/uL (150-400); POLYS 94.1 %; RBC 5.08 mil/uL (4.20-5.00); RDW-CV 15.2 % (10.5-14.5); WBC 24.8 thou/uL (4.0-11.0)
[2021-02-14 10:49] LABS: ALBUMIN 3.7 g/dL (3.4-5.0); CALCIUM 8.7 mg/dL (8.5-10.1); CREATININE 1.3 mg/dL (0.6-1.3); POTASSIUM 3.7 mmol/L (3.5-5.1); TOTAL BILIRUBIN 0.4 mg/dL (<0.1-1.0)
[2021-02-14 12:04] VITALS: BP 115/58
[2021-02-14] MEDS ORDERED: PREDNISONE 10 M10 MG PO (13:42)
[2021-02-14] MEDS ORDERED: CEFDINIR300 MG PO (13:42)
== END 2021-02-14 14:28 | disposition home or self-care (01) | DRG 189 ==
LOC: M.ERS 20:39 → M.TBA-ER 02-12 00:06 → M.2W 02-12 21:33
PROVIDERS: Emergency Medicine; Internal Medicine; ADMIT Internal Medicine; ATTEND Internal Medicine
DX: J96.01 Acute respiratory failure with hypoxia (principal); J44.1 Chronic obstructive pulmonary disease with (acute) exacerbation; F41.9 Anxiety disorder, unspecified; I10 Essential (primary) hypertension; E03.9 Hypothyroidism, unspecified; F32.9 Major depressive disorder, single episode, unspecified; Z20.822 Contact with and (suspected) exposure to COVID-19; Z85.850 Personal history of malignant neoplasm of thyroid; Z79.899 Other long term (current) drug therapy; Z87.891 Personal history of nicotine dependence

== ENCOUNTER → 2021-05-02 | Outpatient (CLI) | payer OTHER ==
[~2021-05-02] MED LIST changes: +BEVESPI AEROS10.7 GM INH; +SERTRALINE HCL100 MG PO
== END ==
LOC: M.CT 12:36
PROVIDERS: ATTEND Internal Medicine Pulmonary Disease
DX: J43.9 Emphysema, unspecified (principal); J98.11 Atelectasis; I70.0 Atherosclerosis of aorta; I25.10 Atherosclerotic heart disease of native coronary artery without angina pectoris; M25.78 Osteophyte, vertebrae

== ENCOUNTER 2021-08-03 14:15 | Inpatient (IN) | payer OTHER, MEDICARE ==
[~2021-08-03] VITALS: Ht 165.1 cm; Wt 81.6 kg
[2021-08-03 14:17] VITALS: BP 148/89
[2021-08-03 14:55] LABS: HEMATOCRIT 46.4 % (37.0-47.0); HEMOGLOBIN 15.4 gm/dL (12.0-15.0); MCH 29.2 pg (26.0-34.0); MCHC 33.3 g/dL (28.0-37.0); MCV 87.7 fL (80.0-100.0); MPV 8.9 fl. (7.2-11.1); NUCLEATED RBCS 0 /100WBC; PLATELET COUNT* 337 thou/uL (150-400); RBC 5.29 mil/uL (4.20-5.00); WBC 10.8 thou/uL (4.0-11.0)
[2021-08-03 15:08] LABS: CREATININE 1.2 mg/dL (0.6-1.3); POTASSIUM 4.4 mmol/L (3.5-5.1)
[2021-08-03 15:17] LABS: ABSOLUTE LYMPHOCYTES 0.5 thou/uL (0.8-5.3); ABSOLUTE MONOCYTES 0.1 thou/uL (0.0-1.2); ABSOLUTE NEUTROPHILS 10.2 thou/uL (1.6-8.1); PLATELET ESTIMATE ADEQUATE
[2021-08-03 15:21] LABS: ALBUMIN 3.6 g/dL (3.4-5.0); TOTAL BILIRUBIN 0.4 mg/dL (<0.1-1.0); TOTAL PROTEIN 7.3 g/dL (6.4-8.2)
--- NOTE | 2021-08-03 15:45 | EKG ---
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 08/03/21 1545 1502 1502 Dawson Olivera MD, [facility] /EPI
[2021-08-03 23:58] VITALS: BP 173/93
[2021-08-04 04:30] VITALS: BP 145/79
[2021-08-04 09:15] VITALS: BP 145/76
[2021-08-04 09:17] LABS: CALCIUM 8.6 mg/dL (8.5-10.1); CREATININE 0.9 mg/dL (0.6-1.3); POTASSIUM 4.6 mmol/L (3.5-5.1)
[2021-08-04 09:20] LABS: MAGNESIUM 2.2 mg/dL (1.8-2.4); PHOSPHORUS* 3.7 mg/dL (2.5-4.9)
[2021-08-04 13:30] VITALS: BP 156/78
[2021-08-04 18:44] VITALS: BP 113/67
[2021-08-04 21:48] VITALS: BP 112/64
[2021-08-05 01:56] VITALS: BP 154/75
[2021-08-05 06:24] VITALS: BP 142/74
[2021-08-05 10:30] VITALS: BP 119/71
[2021-08-05 14:30] VITALS: BP 121/83
[2021-08-05 20:00] VITALS: BP 128/87
[2021-08-06] VITALS: BP 152/82
[2021-08-06 04:25] VITALS: BP 145/80
[2021-08-06 09:00] VITALS: BP 145/82
[2021-08-06] MEDS ORDERED: CEFDINIR300 MG PO (09:28)
[2021-08-06] MEDS ORDERED: PREDNISONE 10 M10 MG PO (09:28)
[2021-08-06 12:00] VITALS: BP 130/85
[2021-08-06 14:51] VITALS: BP 130/85
--- NOTE | 2021-08-06 18:37 | NUR ---
ASSUMED PT CARE AT 0730. PT IS PLEASANTLY ALEART AND ORIENTED X4. ASSESSMENT COMPLETED AND MEDICATIONS ADMINISTEREDA S ORDERED. NEW ORDER TO DISCHARGE PT TO HOME. IV DC'D AND HEART MONITOR REMOVED. SPOUSE HERE TO TRANSFERA PT AT APPROX 1500.
== END 2021-08-06 15:00 | disposition home or self-care (01) | DRG 177 ==
LOC: M.ERS 14:15 → M.TBA-ER 16:25 → M.ORTHSURG 08-05 18:09
PROVIDERS: Emergency Medicine Emergency Medical Services; Internal Medicine; ADMIT Internal Medicine; ATTEND Internal Medicine
DX: U07.1 COVID-19 (principal); J12.82 Pneumonia due to coronavirus disease 2019; J96.01 Acute respiratory failure with hypoxia; J44.0 Chronic obstructive pulmonary disease with (acute) lower respiratory infection; J44.1 Chronic obstructive pulmonary disease with (acute) exacerbation